=== PATIENT | male | born 1990 | race African-American/Black ===

== ENCOUNTER → 2021-07-07 | Outpatient (CLI) | payer OTHER ==
--- NOTE | 2021-07-07 15:52 | MR ---
EXAMINATION TYPE: MR lumbar spine wo/w con DATE OF EXAM: 07/07/2021 COMPARISON: Lumbar spine x-ray June 17, 2021 HISTORY: Stiffness and pain when standing, groin pain. Dorsalgia per order. TECHNIQUE: Multiplanar, multisequence images of the lumbar spine is performed without and with IV contrast, util izing 12 mL intravenous Gadavist FINDINGS: Sagittal images of the lumbar spine show vertebral body heights and alignment to appear sat isfactory. Some disc desiccation L4-L5 level mild to minimal disc space narrowing otherwise intervert ebral discs demonstrate normal heights and hydration. The conus medullaris is normal in position and signal ending mid L1 level. The bone marrow signal intensity is within normal limits. No abnormal p ostcontrast enhancement. Axial images show T12-L1 through the L3-L4 levels to appear within normal limits. Axial images at L4-L5 levels show focal left paracentral disc protrusion effacing the anterior thecal sac measuring 3 mm in AP diameter by 9 mm transversely axial imaging, this may be effacing the centr al left L5 nerve for reference sagittal image 7. Patent bilateral neural foramina. Axial images at L5-S1 level show tiny central disc protrusion on image 4. Spinal canal is preserved a s there is increased epidural fat. Mild facet arthropathy bilaterally. Patent bilateral neural forami na. Paraspinal muscle bulk is preserved. IMPRESSION: Some degenerative changes in the lower lumbar spine with most prominent disc herniation n oted L4-L5 level, , correlate for possible left lower extremity radiculopathy type symptoms
== END | disposition home or self-care (01) ==
LOC: RADMRIMAIN 12:34 → MERGE 12:45
PROVIDERS: ATTEND Student in an Organized Health Care Education/Training Program
DX: M47.816 Spondylosis without myelopathy or radiculopathy, lumbar region (principal); M51.26 Other intervertebral disc displacement, lumbar region
CPT/HCPCS: 72158; A9585

== ENCOUNTER 2021-07-08 10:09 | Emergency (ER) | payer OTHER ==
[2021-07-08 10:50] VITALS: BP 120/78; PULSE 67; RESP 18; TEMP 98.1
--- NOTE | 2021-07-08 11:34 | US ---
EXAMINATION TYPE: US scrotum with doppler. Grayscale and color Doppler Duplex imaging performed of xenia knight scrotum. DATE OF EXAM: 07/08/2021 COMPARISON: NONE CLINICAL HISTORY: left sided testicular pain while playing basketbal. Left testicular pain x 2 days f ollowing pain during playing basketball EXAM MEASUREMENTS: TESTICLES: Right Testicle: 4.3 x 2.0 x 3.1 cm Left Testicle: 4.1 x 1.9 x 3.1 cm EPIDIDYMIS HEAD: Right Epididymis: 1.2 cm Left Epididymis: 1.6 cm Doppler performed to assess for testicular vascularity; good bilateral color flow and waveforms are s een. There is no evidence of testicular torsion. Presence of hydroceles: no Presence of varicoceles: no IMPRESSION: 1. No definite acute process.
[2021-07-08] MEDS ORDERED: ACET/COD 300 MG/30 MG STARTER PACK 6 TAB BTL PO STA (12:59)
--- NOTE | 2021-07-08 13:00 | ED ---
General Adult HPI - General Chief complaint: Urogenital Stated complaint: L testicular Pain Time Seen by Provider: 07/08/21 12:40 Source: patient, RN notes reviewed Mode of arrival: ambulatory Limitations: no limitations - History of Present Illness Initial comments: This a 31-year-old male presented from chief complaint of left leg pain, left groin pain. Patient states this started after playing some basketball but that he tweaked his leg or back. Patient's been struggling with back pain in which she seen his primary care physician had recent MRI. He does not know the results. He denies any saddle anesthesias, no scrotal pain no dysuria no hematuria denies any bowel, bladder incontinence or retention. Patient states he has no difficulty and they no weakness. Patient has no current abdominal pain. He does have relief of symptoms at rest worse with any movement. - Related Data Previous Rx's Medication Instructions Recorded Cyclobenzaprine [Flexeril] 10 mg PO TID PRN #15 tab 07/08/21 Ibuprofen [Motrin] 600 mg PO Q8HR PRN #20 tab 07/08/21 predniSONE 50 mg PO DAILY #5 tab 07/08/21 Allergies Allergy/AdvReac Type Severity Reaction Status Date / Time No Known Allergies Allergy Verified 07/08/21 10:50 Review of Systems ROS Statement: Those systems with pertinent positive or pertinent negative responses have been documented in the HPI. ROS Other: All systems not noted in ROS Statement are negative. Past Medical History Past Medical History: No Reported History History of Any Multi-Drug Resistant Organisms: None Reported Past Surgical History: No Surgical Hx Reported Past Psychological History: No Psychological Hx Reported Smoking Status: Never smoker Past Alcohol Use History: None Reported Past Drug Use History: None Reported General Exam Limitations: no limitations General appearance: alert, in no apparent distress Head exam: Present: atraumatic, normocephalic, normal inspection Eye exam: Present: normal appearance, PERRL, EOMI. Absent: scleral icterus, conjunctival injection, periorbital swelling ENT exam: Present: normal exam, mucous membranes moist Neck exam: Present: normal inspection, full ROM. Absent: tenderness, meningismus, lymphadenopathy Respiratory exam: Present: normal lung sounds bilaterally. Absent: respiratory distress, wheezes, rales, rhonchi, stridor Cardiovascular Exam: Present: regular rate, normal rhythm, normal heart sounds. Absent: systolic murmur, diastolic murmur, rubs, gallop, clicks GI/Abdominal exam: Present: soft, normal bowel sounds. Absent: distended, tenderness, guarding, rebound, rigid Extremities exam: Present: other (Lower extremity pulses equal bilaterally, pain with range of motion of left leg, positive straight leg raise in the left, neurovascular intact equal color equal warmth) Back exam: Present: full ROM, tenderness, paraspinal tenderness. Absent: vertebral tenderness Neurological exam: Present: reflexes normal. Absent: motor sensory deficit Course Vital Signs 07/08/21 10:46 Temperature 98.1 F Pulse Rate 67 Respiratory 18 Rate Blood Pressure 120/78 O2 Sat by Pulse 96 Oximetry Medical Decision Making - Medical Decision Making Patient's MRI shows L4-L5 disc herniation patient has radicular symptoms. Patient discharged in stable condition with follow-up with Dr. Baptiste. Patient started a course of steroids patient has no red flag symptoms he was given return parameters including the symptoms. Patient agrees to plan Disposition Clinical Impression: Lumbar radiculopathy, right, Lumbar disc herniation with radiculopathy Disposition: HOME SELF-CARE Condition: Stable Instructions (If sedation given, give patient instructions): Lumbar Disc Herni ation (ED), Lumbar Radiculopathy (ED) Additional Instructions: Please return to the Emergency Department if symptoms worsen or any other concerns. Prescriptions: Cyclobenzaprine [Flexeril] 10 mg PO TID PRN #15 tab PRN Reason: Muscle Spasm Ibuprofen [Motrin] 600 mg PO Q8HR PRN #20 tab PRN Reason: Pain predniSONE 50 mg PO DAILY #5 tab Is patient prescribed a controlled substance at d/c from ED?: No Referrals: Lakesha Dickey [Primary Care Provider] - 1-2 days Alex Miller DO [Doctor of Osteopathic Medicine] - 1-2 days Time of Disposition: 13:00
== END 2021-07-08 13:18 | disposition home or self-care (01) ==
LOC: EC 10:09
DX: M51.16 Intervertebral disc disorders with radiculopathy, lumbar region (principal)
CPT/HCPCS: 76870; 93975; 99284

== ENCOUNTER 2021-07-10 07:04 | Emergency (ER) | payer OTHER ==
[2021-07-10 07:18] VITALS: TEMP 97.9
[2021-07-10] MEDS ORDERED: ORPHENADRINE 30 MG/ML 2 ML VIAL IVP STA (07:32)
[2021-07-10] MEDS ORDERED: KETOROLAC 15 MG/ML 1 ML VIAL IVP STA (07:32)
[2021-07-10] MEDS ORDERED: KETOROLAC 15 MG/ML 1 ML VIAL IM STA (07:40)
[2021-07-10] MEDS ORDERED: CYCLOBENZAPRINE 5 MG TAB PO STA (07:40)
--- NOTE | 2021-07-10 07:42 | ED ---
Back Pain HPI - General Chief Complaint: Back Pain/Injury Stated Complaint: Back Pain, Leg Pain Time Seen by Provider: 07/10/21 07:20 Source: patient, RN notes reviewed Limitations: no limitations - History of Present Illness Initial Comments: This is a 31-year-old male who presents to the emergency department for low back pain radiating into the left leg. Patient's primary care provider, Dr. Dickey, sent him to the emergency department for a computed tomography scan given the new onset of radiculopathy. Patient believes that the radiculopathy began on July 06, however he did have an MRI on July 07, revealing prominent disc herniation at L4-L5. Radiculopathy is described as going down the posterior left leg and terminating at the popliteal fossa. Pain is described as burning. Denies any loss of bowel/bladder control or spinal anesthesia. He has been taking Tylenol #3, Flexeril, and Prednisone for his pain which he states is not effective. He is scheduled to begin physical therapy on 07/21/2021. Denies any fevers, chills, sore throat, cough, dyspnea, chest pain, palpitations, abdominal pain, nausea, vomiting, diarrhea, or headaches. MD Complaint: back pain Onset/Timin -: days(s) Radiation: left leg Quality: burning - Related Data Previous Rx's Medication Instructions Recorded Cyclobenzaprine [Flexeril] 10 mg PO TID PRN #15 tab 07/08/21 Ibuprofen [Motrin] 600 mg PO Q8HR PRN #20 tab 07/08/21 predniSONE 50 mg PO DAILY #5 tab 07/08/21 Allergies Allergy/AdvReac Type Severity Reaction Status Date / Time No Known Allergies Allergy Verified 07/10/21 07:18 Review of Systems ROS Statement: Those systems with pertinent positive or pertinent negative responses have been documented in the HPI. ROS Other: All systems not noted in ROS Statement are negative. Past Medical History Past Medical History: No Reported History Additional Past Medical History / Comment(s): herniated disc History of Any Multi-Drug Resistant Organisms: None Reported Past Surgical History: No Surgical Hx Reported Past Psychological History: No Psychological Hx Reported Smoking Status: Never smoker Past Alcohol Use History: None Reported Past Drug Use History: None Reported General Exam Limitations: no limitations General appearance: alert, in no apparent distress Head exam: Present: atraumatic, normocephalic, normal inspection Neck exam: Present: normal inspection. Absent: tenderness, meningismus, lymphadenopathy Respiratory exam: Present: normal lung sounds bilaterally. Absent: respiratory distress, wheezes, rales, rhonchi, stridor Cardiovascular Exam: Present: regular rate, normal rhythm, normal heart sounds. Absent: systolic murmur, diastolic murmur, rubs, gallop, clicks Back exam: Present: normal inspection. Absent: tenderness Neurological exam: Present: alert, oriented X3, CN II-XII intact Psychiatric exam: Present: normal affect, normal mood Skin exam: Present: warm, dry, intact, normal color. Absent: rash Course Vital Signs 07/10/21 07/10/21 07:08 10:10 Temperature 97.9 F Pulse Rate 64 68 Respiratory 19 18 Rate Blood Pressure 135/91 136/88 O2 Sat by Pulse 99 99 Oximetry Medical Decision Making - Medical Decision Making This is a 31-year-old male who presents to the emergency department for a computed tomography scan as instructed by his primary care provider, Dr. Dickey. Computed tomography scan of the lumbar spine obtained. This was essentially unchanged from the MRI, aside from noting a chronic fracture at L3. Patient was given Toradol and Flexeril in the emergency department for pain relief. He does not request additional pain medication at this time. He is advised to continue with his current medication regimen, follow up with his PCP, and begin physical therapy as scheduled. Return precautions reviewed in depth, the patient is instructed to return to the emergency department with any new, worsening, or concerning symptoms. Patient verbalized understanding. This case was discussed in detail with the attending ED physician. Presentation, findings, and treatment plan discussed in detail as well. - Radiology Data Radiology results: report reviewed, image reviewed Disposition Clinical Impression: Lumbar disc herniation with radiculopathy Disposition: HOME SELF-CARE Instructions (If sedation given, give patient instructions): Lumbar Radic ulopathy (ED) Additional Instructions: Return to the emergency department with any new, worsening, or concerning symptoms. Follow up with your primary care provider in 1-2 days. Is patient prescribed a controlled substance at d/c from ED?: No Referrals: Lakesha Dickey [Primary Care Provider] - 1-2 days
--- NOTE | 2021-07-10 09:39 | CT ---
EXAMINATION TYPE: CT lumbar spine wo con DATE OF EXAM: 07/10/2021 9:13 AM COMPARISON: MRI dated 07/07/2021 HISTORY: Back pain, Lt leg pain CT DLP: 1455.6 mGycm Automated exposure control for dose reduction was used. Technique: Unenhanced CT of the lumbar spine was performed. Bone and soft tissue window settings are submitted as well as coronal and sagittal reconstructions. Findings: Preserved lumbar lordosis. No significant anterolisthesis or retrolisthesis. No definite vertebral rey dy collapse or acute displaced fracture. Rather maintained intervertebral disc heights. Right L2-3 facet osteoarthropathy with suspected chronic fracture of the right superior articular pro cess of L3 extending to the right L2-3 facet. No other definite facet osteoarthropathy. L1-L2: No significant disc disease, central spinal canal stenosis or neuroforaminal stenosis. L2-L3: No significant disc disease, central spinal canal stenosis or neuroforaminal stenosis. L3-L4: Mild diffuse posterior disc bulge with slightly prominent posterior epidural fat, causing mild central spinal canal stenosis without significant neuroforaminal stenosis. L4-L5: Diffuse posterior disc bulge with focal central and left paracentral disc protrusion, associat ed with slightly prominent posterior epidural fat, causing moderate to severe central spinal canal st enosis without significant neuroforaminal stenosis. L5-S1: Small central posterior disc protrusion with focal disc calcification, causing no significant central spinal canal stenosis or significant neuroforaminal stenosis. Scattered subcentimeter retroperitoneal lymph nodes, nonspecific. No paraspinal lesion. IMPRESSION: Multilevel DDD most evident at L4-5 level as detailed above, please correlate clinically and with the recent MRI results. Right L2-3 facet osteoarthropathy with suspected chronic adjacent fracture as de scribed above.
[2021-07-10 10:11] VITALS: BP 136/88; PULSE 68; RESP 18
== END 2021-07-10 10:10 | disposition home or self-care (01) ==
LOC: EC 07:04
DX: M51.16 Intervertebral disc disorders with radiculopathy, lumbar region (principal)
CPT/HCPCS: 72131; 99283; 96372; J1885

== ENCOUNTER 2021-09-13 10:11 | Inpatient (IN) | payer MEDICAID, OTHER ==
[2021-09-13 11:25] LABS: Amphetamine Screen,Urine Not Detected (NotDetected); Barbiturate Screen,Urine Not Detected (NotDetected); Benzodiazepines Screen,Urine Not Detected (NotDetected); Cocaine Screen,Urine Not Detected (NotDetected); Methadone Screen, Urine Not Detected (NotDetected); Opiate Screen,Urine Not Detected (NotDetected); Oxycodone Screen, Urine Not Detected (NotDetected); Phencyclidine Screen,Urine Not Detected (NotDetected); Tricyclic Antidepressant,Urine Not Detected (NotDetected); Urn Cannabinoid Scrn Detected (NotDetected)
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
[2021-09-13] MEDS ORDERED: HALOPERIDOL LACTATE 5 MG/ML 1 ML VIAL IM PRN (14:29)
[2021-09-13] MEDS ORDERED: ACETAMINOPHEN TAB 325 MG TAB PO PRN (14:29)
[2021-09-13] MEDS ORDERED: LORazepam 1 MG TAB PO PRN (14:29)
[2021-09-13] MEDS ORDERED: MAG HYDROX/AL HYDROX/SIMETH 30 ML CUP PO PRN (14:29)
[2021-09-13] MEDS ORDERED: MAGNESIUM HYDROXIDE 2,400 MG/10 ML CUP PO PRN (14:29)
[2021-09-13] MEDS ORDERED: LORazepam 2 MG/ML INJ IM PRN (14:33)
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
[2021-09-14] MEDS ORDERED: LORazepam 1 MG/0.5 ML VIAL IM PRN (03:02)
[2021-09-14 06:34] VITALS: RESP 16
[2021-09-14 08:37] LABS: ALT 21 U/L (4-49); AST 23 U/L (17-59); African American GFR (CKD) >90 (>60 ml/min/1.73 sqM); Albumin 4.2 g/dL (3.5-5.0); Alkaline Phosphatase 53 U/L (38-126); Anion Gap 3 mmol/L; Blood Urea Nitrogen 10 mg/dL (9-20); Calcium 9.2 mg/dL (8.4-10.2); Carbon Dioxide 31 mmol/L (22-30); Chloride 105 mmol/L (98-107); Glucose 92 mg/dL (74-99); Non-African American GFR(CKD) >90 (>60 ml/min/1.73 sqM); Potassium 3.9 mmol/L (3.5-5.1); Sodium 139 mmol/L (137-145); Total Bilirubin 0.5 mg/dL (0.2-1.3); Total Protein 6.9 g/dL (6.3-8.2)
[2021-09-14 08:41] LABS: Basophils % (A) 1 %; Eosinophils # (A) 0.2 k/uL (0-0.7); Eosinophils % (A) 3 %; HCT 43.7 % (39.0-53.0); HGB 14.7 gm/dL (13.0-17.5); Lymphocytes # (A) 2.7 k/uL (1.0-4.8); Lymphocytes % (A) 38 %; MCH 29.5 pg (25.0-35.0); MCHC 33.7 g/dL (31.0-37.0); MCV 87.4 fL (80.0-100.0); Mean Platelet Volume 6.9; Monocytes # (A) 0.3 k/uL (0-1.0); Monocytes % (A) 4 %; Neutrophils # (A) 3.9 k/uL (1.3-7.7); Neutrophils % (A) 53 %; Platelet Count 247 k/uL (150-450); RDW 13.4 % (11.5-15.5); WBC 7.3 k/uL (3.8-10.6)
[2021-09-14] MEDS: NICOTINE 14MG/24HR PATCH TRANSDERM SCH (08:45)
[2021-09-14 12:40] LABS: Appearance,Urine Clear (Clear); Bilirubin,Urine Negative (Negative); Blood,Urine Negative (Negative); Color,Urine Light Yellow; Glucose,Urine (UA) Negative (Negative); Ketones,Urine Negative (Negative); Leukocyte Esterase,Urine Negative (Negative); Nitrite,Urine Negative (Negative); PH, Urine 7.5 (5.0-8.0); Protein,Urine Negative (Negative); Specific Gravity,Urine 1.014 (1.001-1.035); Urobilinogen,Urine <2.0 mg/dL (<2.0)
[2021-09-14] MEDS ORDERED: ESCITALOPRAM 5 MG TAB PO STA (16:18)
[2021-09-14] MEDS ORDERED: OLANZapine 5 MG TAB PO PRN (16:20)
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
[2021-09-14 19:20] LABS: Urine Alcohol Negative (Negative); Urine Barbiturate Negative (Negative); Urine Cocaine Negative (Negative); Urine Methadone Negative (Negative); Urine Opiates Negative (Negative); Urine Phencyclidine Negative (Negative)
[2021-09-15 08:47] LABS: Chol/HDL Ratio 4.72 Ratio; LDL Cholesterol,Calculated 131.4 mg/dL (0.0-131.0)
[2021-09-15] MEDS: NICOTINE 14MG/24HR PATCH TRANSDERM SCH (09:04)
[2021-09-15] MEDS: ESCITALOPRAM 10 MG TAB PO SCH (09:04)
--- NOTE | 2021-09-15 10:41 | P.PN ---
Progress Note - Text Progress Note Date: 09/15/21 Interval History: Patient was seen wandering the hallways and was directable and agreeable to speak with web content writer in the office. He reports his mood is improving and he has been attending groups. He reports difficulty falling asleep and staying asleep, and last night he required Ativan 1 mg po x 1 at bedtime. At this time, patient denies any suicidal or homical ideations, intent or plan. Patient denies any auditory, visual hallucinations and denies any paranoia or delusions. Patient denies any side effects from the medications and has been compliant with meds. Mental Status Exam: General Appearance: Patient appears to be stated age, is obese. Patient appears to have average hygiene and grooming. Orientation: Alert, and oriented to person, place, time and situation Behavior: Patient is seated without any agitated behavior. Speech: Patient's speech is fluent and non-pressured. Mood/Affect: Patient reports his mood is better today, affect is congruent and constricted. Suicidality/Homicidality: Patient denies having any homicidal ideation intent or plan. Denies any suicidal ideations intent or plan. Perceptions: Patient denies any visual hallucinations and denies any auditory hallucinations. Though content/process: There is no evidence of any delusional thought content and thought process is linear and goal-directed. Memory and concentration: Grossly intact for the purposes of this session. Judgment and insight: Improving mildly Assessment Major depressive disorder, recurrent, severe without psychotic features Posttraumatic stress disorder Amphetamine use disorder Cannabis use disorder Plan: -Patient continues to meet criteria for inpatient psychiatric admission for symptom stabilization and safety. Patient has signed adult voluntary form and medication consent and was placed in patient's chart. -Medications: Lexapro was increased to 10 mg daily starting today for depression/anxiety and will continue at this dose. Discontinue PRN Ativan. Start Trazodone 50 mg QHS for sleep. Continue Zyprexa 5 mg daily PRN for agitation however he has not needed this so far. Likely discharge in 1-2 days. -When necessary Ativan and Haldol for agitation/aggression. -SW on board for discharge planning. Encouraged the patient to participate in milieu.
[2021-09-15] MEDS: traZODone HCL 50 MG TAB PO SCH (21:33)
[2021-09-16 06:34] VITALS: TEMP 97.8
[2021-09-16] MEDS: ESCITALOPRAM 10 MG TAB PO SCH (09:00)
[2021-09-16] MEDS: NICOTINE 14MG/24HR PATCH TRANSDERM SCH (09:00)
--- NOTE | 2021-09-16 11:28 | P.PN ---
Progress Note - Text Progress Note Date: 09/16/21 Interval History: Patient was seen wandering the hallways and was directable and agreeable to speak with freelance copywriter in the office. The patient reports that he is feeling better. He reports that he was feeling extremely stressed out and has been self- medicating with drugs. He continues to endorse significant symptoms of PTSD including hypervigilance and mood dysregulation. However, the patient is denying any suicidal or homicidal ideation, intention, and/or plan. He is not reporting any auditory or visual hallucinations. He denies any paranoia or other delusions. The patient does state that he feels a little sedated with medication at bedtime however is tolerating it well. The patient anticipates discharge tomorrow. Mental Status Exam: General Appearance: Patient appears to be stated age is alert, directable, and cooperative. Behavior: Patient is calmly seated without any agitated behavior. Speech: Patient's speech is fluent and nonpressured. Mood/Affect: Mood is improving mildly, affect is congruent and constricted. Suicidality/Homicidality: Patient denies having any suicidal or homicidal ideation intent or plan. Perceptions: Patient denies any visual hallucinations and denies any auditory hallucinations Though content/process: There is no evidence of any delusional thought content and thought process is linear and goal-directed. Memory and concentration: AOX3, grossly intact for the purposes of this session Judgment and insight: Improving mildly Vital Signs Temp 97.8 F 09/16/21 06:34 Pulse 82 09/16/21 06:34 Resp 16 09/14/21 06:17 BP 125/69 09/16/21 06:34 Pulse Ox 98 09/16/21 06:34 FiO2 Assessment Major depressive disorder, recurrent, severe without psychotic features Posttraumatic stress disorder Amphetamine use disorder Cannabis use disorder Plan: -Patient continues to meet criteria for inpatient psychiatric admission for symptom stabilization and safety. Patient has signed adult voluntary form and medication consent and was placed in patient's chart. -Medications: Increase Lexapro to 20 mg by mouth daily for depression/anxiety/PTSD Trazodone 50 mg by mouth at bedtime for insomnia -When necessary Haldol for agitation/aggression. -NRT - nicotine patch -SW on board for discharge planning. Encouraged the patient to participate in milieu.
[2021-09-16] MEDS: traZODone HCL 50 MG TAB PO SCH (21:18)
[2021-09-17 06:44] VITALS: BP 127/62; PULSE 72
[2021-09-17] MEDS: NICOTINE 14MG/24HR PATCH TRANSDERM SCH (08:07)
[2021-09-17] MEDS ORDERED: ESCITALOPRAM 20 MG TAB PO SCH (09:00)
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
== END 2021-09-17 11:14 | disposition home or self-care (01) | DRG 885 ==
LOC: EC 10:11 → 3MHU 14:27
PROVIDERS: ADMIT Psychiatry & Neurology Psychiatry; ATTEND Psychiatry & Neurology Psychiatry
DX: F33.2 Major depressive disorder, recurrent severe without psychotic features (principal); F15.20 Other stimulant dependence, uncomplicated; E66.9 Obesity, unspecified; Z20.822 Contact with and (suspected) exposure to COVID-19; Z28.310 Unvaccinated for COVID-19; F12.10 Cannabis abuse, uncomplicated; F43.10 Post-traumatic stress disorder, unspecified; F81.9 Developmental disorder of scholastic skills, unspecified; G47.00 Insomnia, unspecified; Z68.38 Body mass index [BMI] 38.0-38.9, adult; Z79.899 Other long term (current) drug therapy; Z62.810 Personal history of physical and sexual abuse in childhood; Z62.811 Personal history of psychological abuse in childhood; Z56.0 Unemployment, unspecified; Z71.51 Drug abuse counseling and surveillance of drug abuser
CPT/HCPCS: 80053; 80061; 80306; 81003; 82075; 83036; 84443; 85025; 87635; 99285